=== PATIENT | female | born 1995 | race Caucasian/White ===

== ENCOUNTER 2019-06-12 06:06 | Inpatient (IN) ==
[2019-06-12] MEDS ORDERED: Ringers Solution, Lactated 1,000 ML ONE ×2 (06:14→07:41)
[2019-06-12] MEDS ORDERED: Naloxone 0.4 MG/ML INJ IVP PRN (06:16)
[2019-06-12] MEDS ORDERED: Famotidine 20 MG/2 ML VIAL IVP PRN (06:16)
[2019-06-12] MEDS ORDERED: Ondansetron 4 MG/2 ML VIAL IVP PRN ×3 (06:16→20:10)
[2019-06-12] MEDS ORDERED: Ringers Solution, Lactated 1,000 ML IVC ONE (06:16)
[2019-06-12] MEDS ORDERED: Metoclopramide 10 MG/2 ML VIAL IVP PRN ×2 (06:16→12:17)
[2019-06-12] MEDS ORDERED: Ringers Solution, Lactated 1,000 ML IVC SCH (06:30)
--- NOTE | 2019-06-12 07:06 | Anesthesia Evaluation PreOp ---
Date of Encounter: 06/12/19 Time of Encounter: 07:04 - Past History Planned Operation: csection Cardiac History: Denies any Significant Hx Pulmonary History: Denies Any Significant HX SITE SUPERVISING TECHNICAL OPERATOR History: Denies Any Significant HX Other Medical History: Thyroid, Other (morbid obesity) Anesthesia History: No Prior Anesthetic Complications, Past Anesthesia (previous csection for failure to progress) : Yes ( at 39+1) Alcohol Use: none Drug use: none - Meds/Allergy Pre-op Review Medications Reviewed: Yes Allergies Reviewed: Yes Beta Blockers on Current Med List: No Anesthesia Exam O2 Sat Height 1.57 m Weight 146.057 kg Height: 62 Weight: 146kg NPO (# of Hours): greater than 8 hours - HEENT Pupil (Motor): Pupils equal Mallampati: II Teeth: Normal Oral Opening: Greater than 3 - SITE SUPERVISING TECHNICAL OPERATOR LOC: Oriented SITE SUPERVISING TECHNICAL OPERATOR Motor: Normal RUE, Normal LUE, Normal RLE, Normal LLE, Normal Face SITE SUPERVISING TECHNICAL OPERATOR Sensory: Normal: RUE, LUE, RLE, LLE, Face - Cardiac Rhythm: Regular Murmur: None JVD: No Carotid Bruit: No - Pulmonary Breath Sounds: bilateral Clear Respiratory Effort: Symmetrical Anesthesia Assess/Plan ASA Score: 3 Level of consciousness: Cooperative Anesthetic Plan: General (Plan B), Spinal (plan A) Monitoring Plan: Standard Monitors Recovery Plan: PACU
[2019-06-12] MEDS ORDERED: Ibuprofen 400 MG TABLET PO PRN (07:17)
[2019-06-12] MEDS ORDERED: *HR* OxyCODONE/APAP 5/325 TABLET PO PRN (07:17)
[2019-06-12] MEDS ORDERED: Acetaminophen IV 1,000 MG/100 ML INFUS..BTL IVPB ONE (07:18)
[2019-06-12] MEDS ORDERED: CeFAZolin Syr 3,000MG/30 ML 3,000 MG/30 ML SYRINGE IVPB ONE (07:32)
--- NOTE | 2019-06-12 07:37 | OB/GYN History & Physical ---
Date of Encounter: 06/12/19 Time of Encounter: 07:34 Assessment and Plan (1) 39 weeks gestation of Current visit: Yes Status: Acute (2) Previous section Current visit: Yes Status: Acute Risks, benefits, and alternatives have been previously discussed and informed consent obtained. Patient denies any questions today. (3) Admission for sterilization Current visit: Yes Status: Acute Patient is confident she does not desire future fertility. Informed consent previously obtained and again verbally admits today. (4) Obesity complicating in third trimester Current visit: Yes Status: Acute (5) Thalassemia alpha carrier Current visit: Yes Status: Acute History of Present Illness Chief complaint: repeat section HPI: Ms. Sullivan is a 23 year old female G2 P 1-0-0-1 at 39 1/7 weeks arrives to labor and delivery for repeat section. She denies any contractions, vaginal bleeding, or leaking fluid. She reports good movement. Her has been complicated by previous section, obesity, and alpha thalassemia carrier. Past Med Surg Social Fam HX - Past Medical History Source: patient Medical history: no medical history Psychiatric history: no psych history - Past Surgical History Surgical History: Additional surgical history: c/s 2016 - Social History Smoking Status: Never smoker Alcohol use: none Drug use: none - Family History Father Living Status: Still Living Hx Family Cardiac Disorders: Yes (heart issues) Hx Family Endocrine Disorder: Yes (diabetic) Obstetrical History - Pregnancies : 2 Para: 1 Term: 1 : 0 Ab's: 0 Livin Medications and Allergies Caplet PO QDPC 06/12/19 [History] Zantac 150 mg PO BID 06/12/19 [History] Allergy/AdvReac Type Severity Reaction Status Date / Time Amoxicillin AdvReac Mild See Verified 06/12/19 07:38 Comments Review of System OB All systems PM: reviewed and no additional remarkable complaints except as stated Exam - Constitutional Constitutional: well developed, well nourished, no acute distress, morbidly obese - HEENT HEENT: EOMI - Lungs Respiratory exam: CTAB - Cardiovascular Cardiovascular exam: RRR - Abdomen Abdomen: Present: bowel sounds normal, gravid, non tender - Extremities Extremities exam: pedal edema, warm - VTE Documentation of Mechanical Device: Intermittent pneumatic compression device (she will also receive Lovenox PP while admitted) Deep Vein Thrombosis/Pulmonary Embolism Present on Admission: No
[2019-06-12] MEDS ORDERED: Ketorolac 30 MG/ML VIAL ONE (07:41)
[2019-06-12] MEDS ORDERED: Dexamethasone 4 MG/ML VIAL ONE (07:41)
[2019-06-12] MEDS ORDERED: *HR* FentaNYL (PF) 100 MCG/2 ML VIAL ONE (07:41)
[2019-06-12] MEDS ORDERED: Ondansetron 4 MG/2 ML VIAL ONE (07:41)
[2019-06-12] MEDS ORDERED: *HR* Oxytocin 10 UNIT/ML VIAL IM ONE ×2 (07:41→09:28)
[2019-06-12] MEDS ORDERED: EPHEDrine 50 MG/ML VIAL ONE (07:41)
[2019-06-12] MEDS ORDERED: *HR* Morphine Sulfate/PF 10 MG/10 ML AMPUL ONE (07:41)
[2019-06-12 07:43] LABS: Basophils % 0.1 %; Eosinophils % 0.2 %; Hematocrit 32.7 % (35.3-44.9); Hemoglobin 10.3 g/dL (11.5-15.4); Immature Granulocytes % 0.7 % (0-4); Lymphocytes # 1.5 K/mcL (0.6-4.6); Lymphocytes % 17.4 %; Mean Corpuscular HGB Conc 31.5 g/dL (31.6-35.5); Mean Corpuscular Volume 73.2 fL (83.0-100.0); Mean Platelet Volume 10.9 fL (9.4-12.4); Monocytes # 0.9 K/mcL (0.0-1.3); Monocytes % 10.2 %; Neutrophils # 6.3 K/mcL (1.6-8.9); Platelet Count 224 K/mcL (140-400); Red Blood Count 4.47 M/mcL (3.82-4.97); Red Cell Distribution Width 17.2 % (11.5-14.5); Segmented Neutrophils % 71.4 %; White Blood Count 8.8 K/mcL (4.3-11.1)
[2019-06-12 08:01] LABS: Amphetamine Screen,Urine Negative ng/mL (Cutoff=1000); Barbiturate Screen,Urine Negative ng/mL (Cutoff=200)
[2019-06-12 08:02] LABS: Benzodiazepines Screen,Urine Negative ng/mL (Cutoff=300); Cannabinoid Screen,Urine Negative ng/mL (Cutoff = 50); Cocaine Screen,Urine Negative ng/mL (Cutoff= 300); Opiate Screen,Urine Negative ng/mL (Cutoff=300); Phencyclidine Screen,Urine Negative ng/mL (Cutoff=25)
--- NOTE | 2019-06-12 09:39 | OB/GYN Procedure Note ---
Section - Date of procedure: 06/12/19 Preop diagnosis: desires repeat , desires sterilization Post-op diagnosis: same Procedure: section, repeat low transverse, bilateral tubal ligation Surgeon: Maryanne Gutierrez Blood Loss: 500 Was there an golf course assistant present: Yes [employer] Deputy Director: Lulu Razo Indirect Sales Representative: Edmund Roldan Anesthesia Type: Spinal section complications: none Disposition: L&D Recovery Room Specimens: Placenta - Infant (s) A Delivery Date: 06/12/19 Delivery Time: 08:38 Presentation: marge breech Route of delivery: breech extraction Gender: Female Viability: Viable Pounds: 6 Ounces: 11 Gram Weight: 3.02 kg at 1 minute: 8 at 5 minutes: 9 Placenta: spontaneous Cord: nuchal cord, 3 umbilical vessels - Narrative Narrative: Patient was taken to the operative suite and placed under spinal anesthetic. She was then prepped and draped in normal sterile fashion in the dorsal supine position. Timeout was then performed. Antibiotics were given at room time. SCDs are on and active. Pfannenstiel skin incision is then made and carried through to underlying layer of fascia with the Bovie. The fascia was then incised in the midline and incision extended laterally with the Denny scissors. The fascia was tented up and dissected off the rectus muscles sharply. The rectus muscles were in the midline and the peritoneum was tented up and entered sharply with the Metzenbaum scissors. The peritoneal incision was then extended bluntly. The Jefferson retractor was then inserted and the vesicouterine peritoneum was identif ied. A low transverse uterine incision was then made superior to the bladder. The breech was brought to the incision and the was delivered using breech maneuvers. There was a loose nuchal cord which was reduced. Cord was clamped and cut. was handed to waiting nursery staff. Placenta delivered spontaneously complete and intact with a three-vessel cord. The uterus was cleared of all clots and debris using moist laparotomy sponge. The uterine incision was then closed using 0 Vicryl in a running locked fashion. A second layer of the same suture was used to obtain excellent hemostasis. The abdomen was then cleared of all clots and debris using copious irrigation. Attention was then turned to the patient's tubes. The right tube was then grasped and followed to the fimbriated end. The distal tube including the fimbria that was double suture ligated using O plain gut and transected. Hemostasis is assured and the tube was returned to the abdomen. The left tube in a similar fashion was grasped and followed to the fimbriated end. The distal part of the tube is in double ligated using O plain gut and transected. Hemostasis is assured and the tube was returned to the abdomen. Hemostasis was again assured at the uterine incision. All instruments are then removed from the patient's abdomen and the final count is correct. The fascial incision was then closed using 0 PDS in a running fashion. The skin was closed using 4-0 Vicryl in a subcuticular fashion. Viola dressing is then placed. Mother and infant taken to recovery in stable condition.
[2019-06-12] MEDS ORDERED: Oxytocin 20 units/ LR 1000 mL 20 UNIT/1,000 ML BAG IVC ONE (09:48)
--- NOTE | 2019-06-12 10:26 | Anesthesia Evaluation Post Op ---
Date of Encounter: 06/12/19 Time of Encounter: 10:26 - Vital Signs Vital Signs: O2 Sat Height 1.57 m Weight 146.057 kg - Lungs Lungs: Clear Ascult./Percussion - Airway Airway: Non-obstructed - Cardiovascular Regular Rate - Mental Status Mental Status: Alert & Oriented, Answers Appropriately - Pain Pain Scale: 0 - Nausea Vomiting Nausea Vomiting: Not Present - Hydration Hydration: Tolerates oral liquids, Duval catheter - Discharge PostOp Status: Transfer Patient to floor
[2019-06-12] MEDS ORDERED: Acetaminophen 325 MG TABLET PO PRN (12:17)
[2019-06-12] MEDS ORDERED: Sennosides 8.6 MG TABLET PO PRN (12:17)
[2019-06-12] MEDS: Ondansetron 4 MG/2 ML VIAL IVP PRN ×2 (12:32→20:43)
[2019-06-12] MEDS: Famotidine 20 MG TABLET PO SCH (19:01)
[2019-06-12] MEDS: Simethicone 80 MG TAB.CHEW PO PRN (19:01)
[2019-06-12] MEDS: cephALEXin 500 MG CAPSULE PO SCH ×2 (19:01→23:52)
[2019-06-12] MEDS: metroNIDAZOLE 500 MG TABLET PO SCH (21:12)
[2019-06-12] MEDS: *HR* Enoxaparin 40 MG/0.4 ML SYRINGE SQ SCH (21:14)
[2019-06-12] MEDS: Oxytocin 20 units/ LR 1000 mL 20 UNIT/1,000 ML BAG IVC SCH (21:15)
[2019-06-12] MEDS: Ibuprofen 600 MG TABLET PO PRN (22:18)
[2019-06-13] MEDS: Ibuprofen 600 MG TABLET PO PRN ×2 (03:45→20:56)
[2019-06-13] MEDS: Oxytocin 20 units/ LR 1000 mL 20 UNIT/1,000 ML BAG IVC SCH (05:10)
[2019-06-13 06:34] LABS: Basophils % 0.1 %; Eosinophils # 0.1 K/mcL (0.0-0.6); Eosinophils % 0.8 %; Hematocrit 27.6 % (35.3-44.9); Immature Granulocytes % 0.3 % (0-4); Lymphocytes # 1.2 K/mcL (0.6-4.6); Lymphocytes % 16.4 %; Mean Corpuscular HGB Conc 31.2 g/dL (31.6-35.5); Mean Corpuscular Hemoglobin 23.4 pg (28.0-33.3); Mean Platelet Volume 10.9 fL (9.4-12.4); Monocytes # 0.8 K/mcL (0.0-1.3); Neutrophils # 5.4 K/mcL (1.6-8.9); Platelet Count 161 K/mcL (140-400); Red Blood Count 3.68 M/mcL (3.82-4.97); Red Cell Distribution Width 17.5 % (11.5-14.5); Segmented Neutrophils % 72.4 %; White Blood Count 7.5 K/mcL (4.3-11.1)
[2019-06-13 06:35] LABS: Hemoglobin 8.6 g/dL (11.5-15.4)
[2019-06-13] MEDS: cephALEXin 500 MG CAPSULE PO SCH ×3 (07:58→20:57)
[2019-06-13] MEDS: *HR* Enoxaparin 40 MG/0.4 ML SYRINGE SQ SCH ×2 (07:58→20:59)
[2019-06-13] MEDS: Prenatal Vit/FA 1 EACH TABLET PO SCH (07:58)
[2019-06-13] MEDS: metroNIDAZOLE 500 MG TABLET PO SCH ×2 (07:58→20:57)
[2019-06-13] MEDS: Famotidine 20 MG TABLET PO SCH ×2 (07:58→16:30)
--- NOTE | 2019-06-13 08:20 | OB/GYN Progress Note ---
Date of Encounter: 06/13/19 Time of Encounter: 08:18 - Assessment and Plan (1) delivery delivered Current Visit: Yes Status: Acute Continue routine postop/ care Meeting all milestones Anticipate discharge home POD 2 or 3 (2) Anemia complicating the puerperium Current Visit: Yes Status: Acute Asymptomatic VSS Increase ferrous sulfate to BIDWM Subjective - Subjective Principal diagnosis: S/P Schedule C/S Interval history: S/P Delivery Day 1. VSS Pain is well controlled Lochia is light and without clots Tolerating regular diet, passing flatus Voiding without difficulty Breast feeding Discharge home POD 2 or 3 POC per consult with Dr Baig Patient reports: appetite normal, voiding normally, pain well controlled, ambulating normally : doing well, nursing well Objective - Vital Signs Latest vital signs: Vital Signs Temp Pulse Resp BP Pulse Ox 06/13/19 03:30 97.8 F 83 20 110/61 98 06/12/19 23:55 98 F 83 16 104/56 98 06/12/19 20:05 98.1 F 83 20 110/62 98 06/12/19 15:00 98.3 F 84 16 127/80 97 06/12/19 14:00 97.7 F 74 16 120/61 98 06/12/19 13:00 98.3 F 69 16 108/52 99 06/12/19 12:30 97.6 F 70 14 127/61 96 06/12/19 12:00 97.6 F 88 14 125/73 99 Intake and Output 06/12/19 06/13/19 06/13/19 23:59 07:59 15:59 Intake Total 1800 / 1800 2000 / 1999 Output Total 375 / 375 800 / 800 Balance 1425 / 1425 1200 / 1200 Intake: IV Fluids 1000 / 1000 Pitocin 20 unit In 1,000 ml @ 1000 / 1000 125 mls/hr IVC .Q8H MARIA E Rx#: [id number] Oral 800 / 800 1000 / 1000 Other 1000 / 1000 Output: Catheter 375 / 375 800 / 800 - Exam Lungs: bilateral: normal Chest: Normal S1, Normal S2 Extremities: Present: normal Abdomen: Present: normal appearance, soft. Absent: gravid Incision: Present: normal, dry, intact Uterus: Present: normal, firm Fundal Height: 0 (U/2) - Labs Labs: Laboratory Results - last 24 hr 06/12/19 06/13/19 06:40 05:39 WBC 7.5 RBC 3.68 L Hgb 8.6 L D Hct 27.6 L MCV 75.0 L MCH 23.4 L MCHC 31.2 L RDW 17.5 H Plt Count 161 MPV 10.9 Immature Gran % 0.3 Seg Neutrophils % 72.4 Lymphocytes % 16.4 Monocytes % 10.0 Eosinophils % 0.8 Basophils % 0.1 Neutrophils # 5.4 Lymphocytes # 1.2 Monocytes # 0.8 Eosinophils # 0.1 Basophils # 0.0 Ur Buprenorphine Scrn Negative
[2019-06-13] MEDS: *HR* OxyCODONE/APAP 5/325 TABLET PO PRN ×2 (13:00→20:56)
[2019-06-13] MEDS: Simethicone 80 MG TAB.CHEW PO PRN (20:57)
[2019-06-14] MEDS: *HR* Enoxaparin 40 MG/0.4 ML SYRINGE SQ SCH (07:42)
[2019-06-14] MEDS: Famotidine 20 MG TABLET PO SCH (07:43)
[2019-06-14] MEDS: metroNIDAZOLE 500 MG TABLET PO SCH (07:43)
[2019-06-14] MEDS: Prenatal Vit/FA 1 EACH TABLET PO SCH (07:43)
[2019-06-14] MEDS: cephALEXin 500 MG CAPSULE PO SCH (07:43)
[2019-06-14] MEDS: Ibuprofen 600 MG TABLET PO PRN (07:44)
[2019-06-14 08:10] VITALS: BP 139/79
--- NOTE | 2019-06-14 10:19 | Discharge Summary ---
Date of Encounter: 06/14/19 Time of Encounter: 10:14 - Discharge Diagnosis (1) Anemia complicating the puerperium Priority: Secondary Status: Acute Comments: Will discharge home on iron BID (2) delivery delivered Priority: Primary Status: Acute - Discharge Medications Prescriptions: New Docusate [Colace] 100 mg PO BID #30 capsule Ferrous Sulfate 325 mg PO BIDWM #60 tablet metroNIDAZOLE [Flagyl] 500 mg PO BID #6 tablet Simethicone [Gas-X] 80 mg PO TID PRN tab.chew PRN Reason: Dyspepsia cephALEXin [Keflex] 500 mg PO TID #9 capsule Ibuprofen [Motrin] 600 mg PO Q6HR PRN #60 tablet PRN Reason: Cramping OxyCODONE/APAP 5/325 [Percocet 5/325 MG] 1 each PO Q4HR PRN 5 Days #20 tablet PRN Reason: Moderate pain 4-6 Acetaminophen [Tylenol] 325 mg PO Q6HR PRN tablet PRN Reason: Fever/Pain Continued Zantac 150 mg PO BID Caplet PO QDPC Home Medications: Caplet PO QDPC 06/12/19 [History] Zantac 150 mg PO BID 06/12/19 [History] Acetaminophen [Tylenol] 325 mg PO Q6HR PRN tablet 06/14/19 [Rx] Docusate [Colace] 100 mg PO BID #30 capsule 06/14/19 [Rx] Ferrous Sulfate 325 mg PO BIDWM #60 tablet 06/14/19 [Rx] Ibuprofen [Motrin] 600 mg PO Q6HR PRN #60 tablet 06/14/19 [Rx] OxyCODONE/APAP 5/325 [Percocet 5/325 MG] 1 each PO Q4HR PRN 5 Days #20 tablet 06/14/19 [Rx] Simethicone [Gas-X] 80 mg PO TID PRN tab.chew 06/14/19 [Rx] cephALEXin [Keflex] 500 mg PO TID #9 capsule 06/14/19 [Rx] metroNIDAZOLE [Flagyl] 500 mg PO BID #6 tablet 06/14/19 [Rx] Allergies/Adverse Reactions: Allergy/AdvReac Type Severity Reaction Status Date / Time Amoxicillin AdvReac Mild See Verified 06/12/19 07:38 Comments Data Procedures and tests throughout hospitalization: Laboratory Tests 06/12/19 06/12/19 06/13/19 06:40 06:40 05:39 WBC 8.8 7.5 RBC 4.47 3.68 L Hgb 10.3 L 8.6 L D Hct 32.7 L 27.6 L MCV 73.2 L 75.0 L MCH 23.0 L 23.4 L MCHC 31.5 L 31.2 L RDW 17.2 H 17.5 H Plt Count 224 161 MPV 10.9 10.9 Immature Gran % 0.7 0.3 Seg Neutrophils % 71.4 72.4 Lymphocytes % 17.4 16.4 Monocytes % 10.2 10.0 Eosinophils % 0.2 0.8 Basophils % 0.1 0.1 Neutrophils # 6.3 5.4 Lymphocytes # 1.5 1.2 Monocytes # 0.9 0.8 Eosinophils # 0.0 0.1 Basophils # 0.0 0.0 Urine Opiates Screen Negative Ur Buprenorphine Scrn Negative Ur Barbiturates Screen Negative Ur Phencyclidine Scrn Negative Ur Amphetamines Screen Negative U Benzodiazepines Scrn Negative Urine Cocaine Screen Negative U Marijuana (THC) Screen Negative Ur Drug Screen Interp See Below Date of admission: 06/12/19 06:06 Discharging clinician: Nayeli Cano Anticipated date of discharge: 06/14/19 - Patient Status Disposition: Home, Self-Care Condition: Good Functional capacity at discharge: independent ambulation Overall status at discharge: patient is progressing back to baseline - Discharge Instructions - Diet and Activity Activity: resume usual activities as tolerated Diet: regular diet Hospital Course Reason for admission: section Delivery: section Episiotomy: none Laceration: none Other procedures: tubal ligation complications: none Discharge diagnosis: IUP at term delivered [place] baby: female Hospital course: Section - Date of procedure: 06/12/19 Preop diagnosis: desires repeat , desires sterilization Post-op diagnosis: same Procedure: section, repeat low transverse, bilateral tubal ligation Surgeon: Maryanne Nagel Quantitated Blood Loss: 500 Was there an production administrative assistant present: Yes Rolling Mill Plugger: Lulu Razo Natural Resource Officer: Edmund Roldan Anesthesia Type: Spinal section complications: none Disposition: L&D Recovery Room Specimens: Placenta - (s) A Delivery Date: 06/12/19 Infant Delivery Time: 08:38 Presentation: marge breech Route of delivery: breech extraction Gender: Female Viability: Viable Pounds: 6 Ounces: 11 Gram Weight: 3.02 kg at 1 minute: 8 at 5 minutes: 9 Placenta: spontaneous Cord: nuchal cord, 3 umbilical vessels Stable in PP and appropriate for discharge Time Attestation: Total time spent providing and/or coordinating discharge services: Time Spent: Less than 30 minutes - VTE Documentation of Mechanical Device: Intermittent pneumatic compression device Deep Vein Thrombosis/Pulmonary Embolism Present on Admission: No Exam - Constitutional Vitals: Temp Pulse Resp BP Pulse Ox 98.4 F 87 18 139/79 100 06/14/19 08:09 06/14/19 08:09 06/14/19 08:09 06/14/19 08:09 06/13/19 21:00 General appearance IM: A&O X 3 - Respiratory Respiratory exam: Present: CTAB - Cardiovascular Cardiovascular exam IM: Present: RRR - GI/Abdominal GI/Abdominal exam IM: soft Incision: dressed (DAVEY in place ) - Uterine Tone: Firm Uterus Position: At Umbilicus - Extremities Exam Extremities exam IM: Present: normal capillary refill, pedal edema - Neurological Exam Neurological exam: normal gait, oriented X3 - Psychiatric Additional comments: reports good mood
== END 2019-06-14 13:31 | disposition home or self-care (01) | DRG 540 ==
LOC: 1NENULAB 06:06 → 1NENUOBS 12:04
PROVIDERS: ADMIT Obstetrics & Gynecology; ATTEND Obstetrics & Gynecology